=== PATIENT | male | born 1985 | race Caucasian/White ===

== ENCOUNTER 2019-03-27 22:02 | Inpatient (IN) | payer OTHER ==
[~2019-03-27] VITALS: Ht 160 cm; Wt 55.3 kg
[2019-03-27 22:04] VITALS: BP 144/102
[2019-03-27 22:31] LABS: ABSOLUTE NEUTROPHILS 4.8 thou/uL (1.4-8.2); BASOPHILS 1.5 % (0.0-2.0); EOSINOPHILS 1.7 % (0.0-3.0); HEMATOCRIT 37.6 % (42.0-52.0); HEMOGLOBIN 13.1 gm/dL (14.0-18.0); LYMPHOCYTES 26.3 % (24.0-44.0); MCH 33.4 pg (26.0-34.0); MCHC 34.8 g/dL (28.0-37.0); MCV 96.1 fL (80.0-100.0); MONOCYTES 11.8 % (1.0-8.0); PLATELET COUNT 255 thou/uL (150-400); POLYS 58.7 % (36.0-66.0); RBC 3.91 mil/uL (4.50-6.00); RDW 12.7 % (10.5-14.5); WBC 8.2 thou/uL (4.0-11.0)
[2019-03-27 22:35] LABS: CALCIUM 8.9 mg/dL (8.5-10.1); CREATININE 0.9 mg/dL (0.7-1.3)
[2019-03-27 22:36] LABS: POTASSIUM 2.4 mmol/L (3.5-5.1)
--- NOTE | 2019-03-27 22:36 | NUR ---
PHYSICIAN PROVIDED WITH CRITICAL POTASSIUM OF 2.4
[2019-03-27 22:44] LABS: APTT 31.5 Seconds (24.5-32.8); PROTIME 10.1 Seconds (9.3-11.4)
[2019-03-28] VITALS (46 sets, daily range): BP systolic 124–180; BP diastolic 85–120
--- NOTE | 2019-03-28 02:18 | NUR ---
REPORT TO ALIYA IN ICU.
[2019-03-28 03:57] LABS: ALBUMIN 3.9 g/dL (3.4-5.0); DIRECT BILIRUBIN 0.3 mg/dL (<0.1-0.3); MAGNESIUM 1.9 mg/dL (1.8-2.4); TOTAL BILIRUBIN 1.1 mg/dL (<0.1-1.0); TOTAL PROTEIN 8.2 g/dL (6.4-8.2)
--- NOTE | 2019-03-28 08:00 | NUR ---
ADMISSION: PT ADMITED FROM ER IN FAIR CONDITION. RHINOROCKET IN PLACE. NO BLEEDING NOTED. PT IS A POOR HISTORIAN. UNABLE TO GET AN ADEQUATE ADMISSION HX. PT VERY IRRITABLE AND CURSING WHEN ASKED QUESTIONS. VSS STABLE. WILL CONTINUE TO MONITOR.
[2019-03-28 08:11] LABS: HEMATOCRIT 33.3 % (42.0-52.0); HEMOGLOBIN 11.4 gm/dL (14.0-18.0)
[2019-03-28 08:23] LABS: CALCIUM 7.6 mg/dL (8.5-10.1); CREATININE 0.7 mg/dL (0.7-1.3)
[2019-03-28 08:27] LABS: AMP/METHAMP POSITIVE (Negative); BARBITURATES Negative (Negative); BENZODIAZEPINES Negative (Negative); COCAINE Negative (Negative); METHADONE Negative (Negative); OPIATES Negative (Negative); PCP Negative (Negative)
[2019-03-28 08:38] LABS: POTASSIUM 2.8 mmol/L (3.5-5.1)
--- NOTE | 2019-03-28 16:22 | NUR ---
CM ASSESSMENT: CASE OPENED FOR DC PLANNING. CLINICAL INFO REVIEWED. PT ADMIT THRU ER AFTER ROAD SIDE ASSISTANCE NOTICED HE HAD NOSEBLEED AND BLOODY CLOTHES. THEY CALLED EMS AND BROUGHT TO [facility] ER. BAL POSITIVE AND UDS POSITIVE FOR METH. LEFT NOSTRIL PACKED AND SEEN BY ENT WITH PLAN TO KEEP IN TIL TUES. DR. VELASCO CONSULTED AND HAS SEEN PT AND CLEARED TO DC WHEN MEDICALLY STABLE. MET WIT PT. HE IS ALERT, KEEPS EYES CLOSED AND MUMBLES RESPONSES. C/O HEADACHE. PT INDICATES HE LIVES IN A HOUSE AND WORKS "[employer]". STATES HE IS ON MEDS ZOLOFT AND TRAZADONE AND "HIGH BLOOD PRESSURE PILL" AND GETS THESE FROM ER VISITS HAS NO PCP. STATES ZOLOFT AND TRAZADONE STARTED AFTER INPT PSYCH STAY AT [facility] ABOUT 6 MONTHS AGO R/T SI AFTER OF A GIRLFRIEND. PT STATES DID NO OUTPT TREATMENT AND NOT INTERESTED IN DRUG OR ETOH TREATMENT NOW BUT WILL TAKE RESOURCES. HEALTH CARE RESOURCE GUIDE PROVIDED, MED DISCOUNT CARD AND CONTACTS ON DC SUMMARY. PT INDICATES HE MAY NOT HAVE TRANSPORTATION WHEN DISCHARGED, MAY NEED CAB VOUCHER.
--- NOTE | 2019-03-28 17:45 | NUR ---
PATIENT DROWSY ON AND OFF THROUGHOUT THE DAY. ORIENTED WHEN AWAKE, HAS BEEN MEDICATED FOR PAIN WITH PRN MEDS, HYPERTENSIVE AT TIMES AND MEDICATED WITH SCHEDDULED AND PRN MEDS. CIWA PROTOCOL IN PLACE AND MEDICATED THIS AFTERNOON WITH ANTIANXIETY. TOLERATING DIET W/O NAUSEA. WILL CONTINUE TO MONITOR CLOSELY FOR WITHDRAWAL SYMPTOMS AND MEDICATE ACCORDINGLY PER ORDERS.
[2019-03-29] VITALS (20 sets, daily range): BP systolic 115–148; BP diastolic 76–101
--- NOTE | 2019-03-29 05:14 | NUR ---
NO SIGNIFICANT CHANGES DURING SHIFT. LEFT RHINO ROCKET STILL IN PLACE WITH BLEEDING CONTROLLED. CWAL 4-8 DURING SHIFT WITH PO ATIVAN NEEDED FOR AGITATION. ASSESSMENT CHARTED. PLANS ARE TO CONTINUE TO MONITOR BLEEDING AND ALCOHOL WITHDRAWELS. CONTINUE WITH PLAN OF CARE
[2019-03-29 08:35] LABS: CALCIUM 8.6 mg/dL (8.5-10.1); CREATININE 0.8 mg/dL (0.7-1.3)
[2019-03-29 08:37] LABS: POTASSIUM 2.6 mmol/L (3.5-5.1)
--- NOTE | 2019-03-29 19:41 | NUR ---
Patient is progressing towards outcome goals as O2 sat is greater than 95% on room air. CIWA is 3-5 today with Ativan given q4h po. No seizure activity noted. Pain controlled with Fentanyl. Nasal rocket intact. BP within paramaters.
[2019-03-30] VITALS (25 sets, daily range): BP systolic 108–161; BP diastolic 68–111
--- NOTE | 2019-03-30 03:06 | NUR ---
ASSUMED CARE OF PATIENT AT 1900. VSS, AFEBRILE. C/O OF SLIGHT HEADACHE AT THE BEGINNING OF SHIFT, HOWEVER FELL ASLEEP AND DENIED ANY MORE PAIN AFTER. MEDS GIVEN ORDERED, DENIES N/V OR SOA. WORKING TOWARDS POC GOALS.
[2019-03-30 05:38] LABS: ABSOLUTE NEUTROPHILS 6.7 thou/uL (1.4-8.2); BASOPHILS 0.6 % (0.0-2.0); EOSINOPHILS 1.1 % (0.0-3.0); HEMATOCRIT 34.4 % (42.0-52.0); HEMOGLOBIN 12.2 gm/dL (14.0-18.0); LYMPHOCYTES 14.2 % (24.0-44.0); MCH 34.6 pg (26.0-34.0); MCHC 35.5 g/dL (28.0-37.0); MCV 97.6 fL (80.0-100.0); PLATELET COUNT 235 thou/uL (150-400); POLYS 72.1 % (36.0-66.0); RBC 3.53 mil/uL (4.50-6.00); RDW 12.7 % (10.5-14.5); WBC 9.3 thou/uL (4.0-11.0)
[2019-03-30 06:19] LABS: ALBUMIN 3.1 g/dL (3.4-5.0); CALCIUM 8.7 mg/dL (8.5-10.1); CREATININE 0.7 mg/dL (0.7-1.3); POTASSIUM 3.4 mmol/L (3.5-5.1); TOTAL BILIRUBIN 1.3 mg/dL (<0.1-1.0); TOTAL PROTEIN 7.6 g/dL (6.4-8.2)
[2019-03-30 17:33] LABS: URINE BILIRUBIN NEGATIVE (Negative); URINE BLOOD NEGATIVE (Negative); URINE CLARITY CLEAR; URINE COLOR YELLOW; URINE GLUCOSE-RANDOM* NEGATIVE (Negative); URINE KETONES NEGATIVE (Negative); URINE LEUKOCYTES-REFLEX NEGATIVE (Negative); URINE NITRITE-REFLEX NEGATIVE (Negative); URINE PROTEIN (DIPSTICK) TRACE (Negative)
--- NOTE | 2019-03-30 18:46 | NUR ---
PATIENT ALERT AND ORIENTED X4, PAIN CONTROLLED WITH MEDICATION. ON ROOM AIR, NO SIGNS OF RESPIRATORY DISTRESS. TOLERATING DIET WELL. CIWA SCORE DECREASING WITH MILD SYMPTOMS. SINUS TACYCARDIA ON SEM MANAGER. NO SIGNS OF ACUTE DISTRESS NOTED AT THIS TIME. WILL CONTINUE TO MONITOR.
[2019-03-31 00:01] VITALS: BP 117/81
--- NOTE | 2019-03-31 00:30 | NUR ---
ASSUMED CARE OF PT AT 204. PT DROWSY AND SLEEPING. PT TX'D TO CCU AT 0015. REPORT GIVEN TO BETTY AT 0005.
--- NOTE | 2019-03-31 02:39 | NUR ---
PT TRANSFERED FROM ICU TO ROOM 219, RECENT PAIN MEDS GIVEN PT STATES IT IS BETTER NOW NO OTHER C/O, VSS, PT NOW SLEEPING, SIDE RAILS PADDED FOR SZ PRECATIONS, WILL CON'T TO MONITOR PER PPOC.
[2019-03-31 05:01] LABS: CALCIUM 9.2 mg/dL (8.5-10.1); CREATININE 0.7 mg/dL (0.7-1.3); MAGNESIUM 1.9 mg/dL (1.8-2.4)
[2019-03-31 05:07] LABS: HEMATOCRIT 32.9 % (42.0-52.0); HEMOGLOBIN 11.3 gm/dL (14.0-18.0); MCH 33.9 pg (26.0-34.0); MCHC 34.3 g/dL (28.0-37.0); MCV 98.8 fL (80.0-100.0); RBC 3.32 mil/uL (4.50-6.00); RDW 12.3 % (10.5-14.5); WBC 9.4 thou/uL (4.0-11.0)
[2019-03-31 05:42] VITALS: BP 128/90
[2019-03-31 09:04] VITALS: BP 140/87
--- NOTE | 2019-03-31 10:46 | NUR ---
ASSUMED CARE AT 0700, SHIFT ASSESSMENT DONE, MEDS GIVEN, VSS. ON CIWA PROTOCOL, SCORING LOW. DENIES ANY NAUSEA, VOMITING. REPORTED FACIAL PAIN, PRN PAIN MEDS GIVEN. ON SEIZURE PRECAUTIONS, NSR ON TELE. WILL CONTINUE TO ASSESS AND ASSIST WITH ADLs NEEDED.
[2019-03-31 13:39] VITALS: BP 132/76
[2019-03-31 17:33] VITALS: BP 124/86
[2019-03-31 19:48] VITALS: BP 130/76
[2019-04-01 04:10] VITALS: BP 132/76
[2019-04-01 07:06] VITALS: BP 113/68
--- NOTE | 2019-04-01 07:15 | NUR ---
PT RESTING QUIETLY IN ROOM, VSS, PRN PAIN MEDS GIVEN CHARTED FOR C/O FACIAL, HEAD AND NECK PAIN, VOIDING PER URINAL, WILL CON'T TO MONITOR PER PPOC.
[2019-04-01] MEDS ORDERED: NICOTINE TRANSD21 M1 TRANSDERM (10:41)
[2019-04-01] MEDS ORDERED: GENTAMICIN 0.1%15 G2 TOP (10:41)
[2019-04-01] MEDS ORDERED: LOPRESSOR25 PO (10:41)
[2019-04-01 11:03] VITALS: BP 121/80
--- NOTE | 2019-04-01 11:05 | NUR ---
ASSUMED CARE AT 0700, SHIFT ASSESSMENT DONE, MEDS GIVEN, VSS. REPORTED PAIN, PRN PAIN MEDS GIVEN. CIWA SCORE IS 1, DISCHARGE ORDER RECEIVED. AWIATING FOR ENT DOCTOR TO TAKE THE NASAL PACKING OUT. WILL CONTINUE TO ASSESS AND ASSIST WITH ADLs NEEDED.
[2019-04-01] MEDS ORDERED: NORCO 5-325 TA1 EAC1 PO (14:00)
--- NOTE | 2019-04-01 16:40 | NUR ---
vouched for medications 101.03. cannot vouch for pain medication. Picked up prescriptions and gave to RN. Patient has address for home and believes he has a ride no further needs.
[2019-04-01 18:26] VITALS: BP 121/80
--- NOTE | 2019-04-01 18:44 | NUR ---
ENT DOCTOR CAME, CAUTERIZED THE NOSE BLEEDING SITE, DISCHARG ORDER RECEIVED. PERIPHERAL IV WAS TAKEN OUT, SCRIPTS AND MEDS GIVEN. WALKED OUT OF THE UNIT AT 1830
== END 2019-04-01 19:05 | disposition home or self-care (01) | DRG 151 ==
LOC: ER 22:02 → EROBS 03-28 00:52 → ICU 03-28 02:29 → 2N 03-31 00:18
PROVIDERS: Emergency Medicine; Nurse Practitioner Acute Care; ADMIT Internal Medicine
PROC: 2Y41X5Z Packing of Nasal Region using Packing Material (ICD-10-PCS; principal; 2019-03-28)
DX: R04.0 Epistaxis (principal); F15.20 Other stimulant dependence, uncomplicated; E46 Unspecified protein-calorie malnutrition; G89.29 Other chronic pain; I10 Essential (primary) hypertension; M54.9 Dorsalgia, unspecified; M25.519 Pain in unspecified shoulder; F32.9 Major depressive disorder, single episode, unspecified; F17.210 Nicotine dependence, cigarettes, uncomplicated; E87.6 Hypokalemia; I16.0 Hypertensive urgency; F10.229 Alcohol dependence with intoxication, unspecified; Z60.2 Problems related to living alone; F39 Unspecified mood [affective] disorder; Z68.21 Body mass index [BMI] 21.0-21.9, adult; Z91.041 Radiographic dye allergy status; Z82.49 Family history of ischemic heart disease and other diseases of the circulatory system; Z80.8 Family history of malignant neoplasm of other organs or systems; Z71.6 Tobacco abuse counseling; Z79.899 Other long term (current) drug therapy; Z87.81 Personal history of (healed) traumatic fracture
CPT/HCPCS: 10078; 10081; 50599; 53635

== ENCOUNTER 2019-08-11 19:54 | Emergency (ER) | payer OTHER ==
[~2019-08-11] VITALS: Ht 157.5 cm; Wt 77.1 kg
[~2019-08-11 19:54] MED LIST: GENTAMICIN 0.1%15 G2 TOP; LOPRESSOR25 PO; NICOTINE TRANSD21 M1 TRANSDERM; NORCO 5-325 TA1 EAC1 PO
[2019-08-11] MEDS ORDERED: SERTRALINE HCL100 MG PO (20:23)
[2019-08-11] MEDS ORDERED: XANAX 0.25 MG0.25 MG PO (20:24)
[2019-08-11] MEDS ORDERED: TRAZODONE HCL100 MG PO (20:24)
[2019-08-11] MEDS ORDERED: TYLENOL325 MG PO (22:21)
[2019-08-11 22:58] VITALS: BP 142/73
== END 2019-08-11 22:58 | disposition home or self-care (01) ==
LOC: ER 19:54
DX: M54.2 Cervicalgia (principal); R51 Headache; R68.84 Jaw pain; I10 Essential (primary) hypertension; G89.29 Other chronic pain; M54.9 Dorsalgia, unspecified; F17.210 Nicotine dependence, cigarettes, uncomplicated; F32.9 Major depressive disorder, single episode, unspecified; Z98.890 Other specified postprocedural states; Z91.041 Radiographic dye allergy status; W18.39XA Other fall on same level, initial encounter; Y92.89 Other specified places as the place of occurrence of the external cause; Y93.89 Activity, other specified; Y99.8 Other external cause status